=== PATIENT | male | born 1945 | race Hispanic/Latino ===

== ENCOUNTER → 2019-08-04 | Outpatient (CLI) | payer OTHER, MEDICARE | END | disposition home or self-care (01) | LOC: RAH 10:38 | PROVIDERS: ATTEND Internal Medicine Gastroenterology | DX: K31.84 Gastroparesis (principal); R14.0 Abdominal distension (gaseous) | CPT/HCPCS: 78264; A9541 ==

== ENCOUNTER → 2020-07-27 | Outpatient (CLI) | payer OTHER, MEDICARE | END | disposition home or self-care (01) | LOC: RAH 15:38 | PROVIDERS: ATTEND Internal Medicine | DX: R20.9 Unspecified disturbances of skin sensation (principal); M79.605 Pain in left leg | CPT/HCPCS: 93926; 93971 ==

== ENCOUNTER → 2020-08-15 | Outpatient (CLI) | payer OTHER, MEDICARE ==
[~2020-08-15] MED LIST: IOHEXOL-350 50ML VIAL IV ONE
== END | disposition home or self-care (01) ==
LOC: RAH 08:56
PROVIDERS: ATTEND Internal Medicine
DX: N40.0 Benign prostatic hyperplasia without lower urinary tract symptoms (principal); I70.203 Unspecified atherosclerosis of native arteries of extremities, bilateral legs; L03.119 Cellulitis of unspecified part of limb; M79.609 Pain in unspecified limb; K40.20 Bilateral inguinal hernia, without obstruction or gangrene, not specified as recurrent
CPT/HCPCS: 75635; Q9967

== ENCOUNTER → 2020-10-23 | Outpatient (CLI) | payer OTHER, MEDICARE | END | disposition home or self-care (01) | LOC: SHCH 14:38 | PROVIDERS: ATTEND Internal Medicine Cardiovascular Disease | DX: I87.2 Venous insufficiency (chronic) (peripheral) (principal) | CPT/HCPCS: 93970 ==

== ENCOUNTER → 2022-05-28 | Outpatient (CLI) | payer OTHER, MEDICARE ==
[~2022-05-28] MED LIST changes: +AMLO-257 PO; +ASPI-1443 PO; +FLUT16H NASAL; -IOHEXOL-350 50ML VIAL IV ONE; +LEVO25TA54 PO; +LORA10TA7 PO; +METF-444 PO; +MONT-39 PO; +PANT20TA PO; +POLY17PO4 PO; +RIVA2.5T PO; +ROSU40TA21 PO; +TAMS-1 PO; +TRAM50TA4 PO; +VALS320T16 PO
== END | disposition home or self-care (01) ==
LOC: SHCH 07:50
PROVIDERS: ATTEND Internal Medicine Cardiovascular Disease
DX: I70.203 Unspecified atherosclerosis of native arteries of extremities, bilateral legs (principal)
CPT/HCPCS: 93925

== ENCOUNTER 2022-07-08 08:35 | Observation (INO) | payer OTHER, MEDICARE ==
[2022-07-04 13:25] LABS: BASOPHILS % (AUTO) 0.3 % (0.0-5.0); HEMATOCRIT 41.4 % (42-54); LYMPHOCYTES % (AUTO) 43.6 % (21.0-51.0); MEAN CORPUSCULAR HEMOGLOBIN 25.7 pg (27.0-33.0); MEAN CORPUSCULAR HGB CONC 31.9 g/dL (32.0-36.0); MEAN CORPUSCULAR VOLUME 80.5 fL (79-99); MONOCYTES % (AUTO) 7.6 % (3.0-13.0); NEUTROPHILS % (AUTO) 47.3 % (40.0-77.0); PLATELET COUNT (AUTO) 131 K/uL (130-400); RED BLOOD CELL COUNT(AUTO) 5.14 MIL/uL (4.50-6.20); RED CELL DISTRIBUTION WIDTH 15.6 % (11.0-15.5); WHITE BLOOD COUNT (AUTO) 5.8 K/uL (4.8-10.8)
[2022-07-04 13:25] LABS: APPEARANCE,URINE CLEAR (CLEAR); BILIRUBIN,URINE NEGATIVE (NEGATIVE); COLOR,URINE LIGHT-YELLOW (YELLOW); GLUCOSE, URINE (UA) NEGATIVE (NEGATIVE); KETONES,URINE NEGATIVE (NEGATIVE); LEUKOCYTE ESTERASE ,URINE NEGATIVE Leu/uL (NEGATIVE); NITRATE,URINE NEGATIVE (NEGATIVE); OCCULT BLOOD,URINE NEGATIVE (NEGATIVE); PH,URINE 6.5 (5.0-8.0); PROTEIN,URINE 20 mg/dL (NEGATIVE); UROBILINOGEN,URINE 0.2 mg/dL (0.2-1.0)
[2022-07-04 13:41] LABS: POTASSIUM 4.1 mmol/L (3.5-5.1)
[2022-07-04 13:42] LABS: INR 1.01 (0.85-1.15)
[2022-07-04 13:43] LABS: PARTIAL THROMBOPLASTIN TIME 28.6 SEC (26.3-35.5)
[2022-07-04 13:46] LABS: B-TYPE NATRIURETIC PEPTIDE 75 pg/mL (0-100)
[2022-07-04 13:59] LABS: RBC,URINE 0-1 /HPF (0-1); WBC,URINE 0-1 /HPF (0-1)
[2022-07-04 14:36] VITALS: BP 153/72
[2022-07-08] VITALS (29 sets, daily range): BP systolic 125–195; BP diastolic 61–93
[~2022-07-08] VITALS: Ht 168.9 cm; Wt 82.0 kg
[2022-07-08] MEDS ORDERED: NITROGLYCERIN 50MG VIAL ONE (09:50)
[2022-07-08] MEDS ORDERED: HEPARIN 10,000 UNIT/10ML (1,000 UNIT/ML) VIAL ONE (09:50)
[2022-07-08] MEDS ORDERED: LIDOCAINE HCL 400MG/20ML VIAL ONE (09:50)
[2022-07-08] MEDS ORDERED: MIDAZOLAM HCL 1 MG/ML 2ML VIAL ONE (09:50)
[2022-07-08] MEDS ORDERED: FENTANYL CITRATE PF 50 MCG/1 ML 2ML VIAL ONE (09:50)
[2022-07-08] MEDS ORDERED: IODIXANOL 320 MG/ML 100 ML VIAL ONE (09:50)
[2022-07-08] MEDS ORDERED: CETI10TA57 PO (10:26)
[2022-07-08] MEDS ORDERED: METO25TA6 PO (10:26)
[2022-07-08] MEDS ORDERED: PANT40TA54 PO (10:26)
[2022-07-08] MEDS ORDERED: ROSU40TA21 PO (10:27)
[2022-07-08] MEDS ORDERED: 0.9%NACL 1000ML 1,000 ML IV ONE (10:39)
[2022-07-08] MEDS ORDERED: 0.9%NACL 1000ML 1,000 ML IV SCH (12:30)
[2022-07-08] MEDS ORDERED: DEXTROSE 50%-WATER 50 ML DISP.SYRIN IV PRN (12:30)
[2022-07-08] MEDS ORDERED: GLUCAGON 1MG KIT 1 MG ML IM PRN (12:30)
[2022-07-08] MEDS ORDERED: HYDRALAZINE 20MG/ML VIAL IV PRN ×2 (12:30→13:00)
[2022-07-08] MEDS ORDERED: NITROGLYCERIN 0.4 MG SL TAB SL PRN (13:00)
[2022-07-08] MEDS ORDERED: ATROPINE 1MG SYG IVP ONE (14:49)
[2022-07-08] MEDS ORDERED: HYDRALAZINE 20MG/ML VIAL ONE (15:01)
[2022-07-09 03:30] VITALS: BP 114/62
[2022-07-09 06:13] LABS: HEMATOCRIT 39.1 % (42-54); MEAN CORPUSCULAR VOLUME 81.5 fL (79-99); RED BLOOD CELL COUNT(AUTO) 4.8 MIL/uL (4.50-6.20); RED CELL DISTRIBUTION WIDTH 16.4 % (11.0-15.5); WHITE BLOOD COUNT (AUTO) 8.7 K/uL (4.8-10.8)
[2022-07-09 06:28] LABS: ALBUMIN 3.6 g/dL (3.5-5.0); CREATININE 1.1 mg/dL (0.5-1.5); MAGNESIUM 2.3 mg/dL (1.80-2.40); POTASSIUM 3.6 mmol/L (3.5-5.1); TOTAL PROTEIN, SERUM 7.2 g/dL (6.0-8.3)
[2022-07-09] MEDS: INSULIN HUMULIN R 100 UNIT/ML 3ML SQ SCH ×2 (07:30→12:03)
[2022-07-09 08:00] VITALS: BP 131/61
[2022-07-09] MEDS ORDERED: MONTELUKAST SODIUM 10 MG TAB PO SCH (09:00)
[2022-07-09] MEDS ORDERED: TAMSULOSIN HCL 0.4 MG CAP.ER.24H PO SCH (09:00)
[2022-07-09] MEDS ORDERED: ASPIRIN 81 MG EC TAB PO SCH (09:00)
[2022-07-09] MEDS ORDERED: RIVAROXABAN 2.5 MG TABLET PO SCH (09:00)
[2022-07-09] MEDS ORDERED: AMLODIPINE 5 MG TAB PO SCH (09:00)
[2022-07-09] MEDS ORDERED: LOSARTAN 100 MG TABLET PO SCH (09:00)
[2022-07-09] MEDS ORDERED: PANTOPRAZOLE 40 MG TAB DR PO SCH (09:00)
[2022-07-09] MEDS ORDERED: ATORVASTATIN 40 MG TABLET PO SCH (09:00)
[2022-07-09] MEDS ORDERED: CLOPIDOGREL 75MG TAB PO SCH (09:00)
[2022-07-09] MEDS ORDERED: METOPROLOL TARTRATE 25 MG TAB PO SCH (09:00)
[2022-07-09] MEDS ORDERED: CLOP-31 PO (11:19)
[2022-07-09] MEDS ORDERED: ASPI-1005 PO (11:21)
== END 2022-07-09 12:40 | disposition home or self-care (01) ==
LOC: DAH 08:35 → DAHIP 08:36 → 3BH 18:09
PROVIDERS: ADMIT Internal Medicine; ATTEND Internal Medicine
DX: I73.9 Peripheral vascular disease, unspecified (principal); I10 Essential (primary) hypertension; E03.9 Hypothyroidism, unspecified; I25.10 Atherosclerotic heart disease of native coronary artery without angina pectoris; K21.9 Gastro-esophageal reflux disease without esophagitis; N40.0 Benign prostatic hyperplasia without lower urinary tract symptoms; E11.51 Type 2 diabetes mellitus with diabetic peripheral angiopathy without gangrene; E78.5 Hyperlipidemia, unspecified; Z79.82 Long term (current) use of aspirin; Z95.1 Presence of aortocoronary bypass graft; Z79.899 Other long term (current) drug therapy; Z98.890 Other specified postprocedural states
CPT/HCPCS: 80048; 83880; 85025; 85610; 85730; 81001; 36415 ×2; 71045; 93005; 37224; 75625; 75716; 75774; 96360; 96361; 82948 ×5; 83735; 80053; 85027; C1894 ×2; C1769 ×2; C1893; C2623; C1874; C1725; C1887; C1727; C9765; G0378 ×25; J3010; J3490 ×2; J7030; J0360; J1644 ×2; J2250; Q9967; A4215; A4223 ×3; A4222; A4221; A4663; A4216; A4606; J1815; 99156; 99157; J0461

== ENCOUNTER → 2022-10-14 | Outpatient (CLI) | payer OTHER, MEDICARE ==
[~2022-10-14] MED LIST changes: +ASPI-1005 PO; -ASPI-1443 PO; +CETI10TA57 PO; +CLOP-31 PO; -FLUT16H NASAL; -LEVO25TA54 PO; -LORA10TA7 PO; +METO25TA6 PO; -PANT20TA PO; +PANT40TA54 PO; -POLY17PO4 PO; -TRAM50TA4 PO
== END | disposition home or self-care (01) ==
LOC: SHCH 10:05
PROVIDERS: ATTEND Internal Medicine Cardiovascular Disease
DX: I73.9 Peripheral vascular disease, unspecified (principal)
CPT/HCPCS: 93925

== ENCOUNTER → 2023-10-27 | Outpatient (CLI) | payer OTHER, MEDICARE ==
[~2023-10-27] MED LIST changes: -ROSU40TA21 PO; +ROSU40TA70 PO
== END | disposition home or self-care (01) ==
LOC: SHCH 08:32
PROVIDERS: ATTEND Internal Medicine Cardiovascular Disease
DX: I70.203 Unspecified atherosclerosis of native arteries of extremities, bilateral legs (principal); Z95.828 Presence of other vascular implants and grafts
CPT/HCPCS: 93925